=== PATIENT | male | born 1945 | race Caucasian/White ===

== ENCOUNTER 2023-06-21 09:19 | Emergency (ER) | payer MEDICARE ==
[2023-06-21 09:53] VITALS: RESP 18; TEMP 97.9
--- NOTE | 2023-06-21 10:03 | ED ---
Extremity Problem HPI - General Chief complaint: Extremity Problem,Nontraumatic Stated complaint: r leg injury/pain Time Seen by Provider: 06/21/23 09:27 Source: patient, RN notes reviewed Mode of arrival: wheelchair Limitations: physical limitation - History of Present Illness Initial comments: This is a 77-year-old male who presents to the emergency department for a right knee injury. Patient went to step up into his truck with his left leg, and ended up twisting his right knee somehow, and states that he felt something shift and pop. He has since had a lot of difficulty trying to bear weight and putting pressure on the right leg. Pain is only prominent when walking, and not as bothersome when sitting still. Not taking anything for management of his pain. Denies sustaining any other injuries. MD Complaint: extremity pain - Related Data Allergies Allergy/AdvReac Type Severity Reaction Status Date / Time No Known Allergies Allergy Verified 06/21/23 09:24 Review of Systems ROS Statement: Those systems with pertinent positive or pertinent negative responses have been documented in the HPI. ROS Other: All systems not noted in ROS Statement are negative. Past Medical History Past Medical History: No Reported History History of Any Multi-Drug Resistant Organisms: None Reported Past Surgical History: Tonsillectomy Past Psychological History: No Psychological Hx Reported Smoking Status: Never smoker Past Alcohol Use History: None Reported Past Drug Use History: None Reported General Exam Limitations: physical limitation General appearance: alert, in no apparent distress Head exam: Present: atraumatic, normocephalic, normal inspection Respiratory exam: Present: normal lung sounds bilaterally. Absent: respiratory distress, wheezes, rales, rhonchi, stridor Cardiovascular Exam: Present: regular rate, normal rhythm, normal heart sounds. Absent: systolic murmur, diastolic murmur, rubs, gallop, clicks Extremities exam: Present: other (Tenderness to palpation over the right knee with mild swelling. ROM limited by pain.) Neurological exam: Present: alert, oriented X3, CN II-XII intact Psychiatric exam: Present: normal affect, normal mood Skin exam: Present: warm, dry, intact, normal color. Absent: rash Course Vital Signs 06/21/23 06/21/23 09:20 11:47 Temperature 97.9 F Pulse Rate 65 63 Respiratory 18 18 Rate Blood Pressure 210/89 167/84 O2 Sat by Pulse 97 96 Oximetry Medical Decision Making - Medical Decision Making This is a 77 year old male who presents to the emergency department for right knee pain. Was pt. sent in by a medical professional or institution? @ -No Did you speak to anyone other than the patient for history? @ -No Did you review nursing and triage notes? @ -Yes, and I agree, it is accurate with regards to the patient's symptoms. Were old charts reviewed? @ -No Differential Diagnosis? @ -Differential Musculoskeletal: Muscular strain, contusion, ligament sprain, fracture, arthritis, septic arthritis, bursitis, cellulitis, muscle spasm, nerve compression, DVT, arterial occlusion, herpes zoster, electrolyte abnormality, tumor.... This is not meant to be in all inclusive list EKG interpreted by me (3pts min.)? @ -Not obtained X-rays interpreted by me (1pt min.)? @ -X-ray of the right knee obtained. My interpretation identifies no acute fractures. CT interpreted by me (1pt min.)? @ -Not obtained U/S interpreted by me (1pt. min.)? @ -Not obtained What testing was considered but not performed? (CT, X-rays, U/S, labs)? Why? @ -None What meds were considered but not given? Why? @ -None Did you discuss the management of the patient with other professionals? @ -No Did you reconcile home meds? @ -No Was smoking cessation discussed for >3mins.? @ -No Was critical care preformed (if so, how long)? @ -No Were there social determinants of health that impacted care today? How? (Homelessness, low income, unemployed, alcoholism, drug addiction, transportation, low edu. Level, literacy, decrease access to med. care, residential, rehab)? @ -No Was there de-escalation of care discussed even if they declined? (Discuss DNR or withdrawal of care, Hospice)? @ -No What co-morbidities impacted this encounter? (DM, HTN, Smoking, COPD, CAD, Cancer, CVA, Hep., AIDS, mental health diagnosis, sleep apnea, morbid obesity)? @ -None Was patient admitted / discharged? @ -Discharged. X-ray of the right knee obtained revealing soft tissue swelling. No acute fractures were identified. Discussed with the patient that that does not rule out the possibility of injuries to other structures such as ligaments, tendons, or his meniscus. Knee immobilizer applied in the emergency department which did improve symptoms and he was able to ambulate afterwards. Patient denies the need for any pain medication. Advised ibuprofen and Tylenol as needed for pain relief at home and applying ice for 15-20 minutes every 2-3 hours. Undiagnosed new problem with uncertain prognosis? @ -None Drug Therapy requiring intensive monitoring for toxicity (Heparin, Nitro, Insulin, Cardizem)? @ -None Were any procedures done? @ -None Diagnosis/symptom? @ -Right knee sprain Acute, or Chronic, or Acute on Chronic? @ -Acute Uncomplicated (without systemic symptoms) or Complicated (systemic symptoms)? @ -Uncomplicated Side effects of treatment? @ -None Exacerbation, Progression, or Severe Exacerbation] @ -Not applicable Poses a threat to life or bodily function? @ -This may limit his ability to ambulate for the mean time. Return precautions reviewed in depth, the patient is instructed to return to the emergency department with any new, worsening, or concerning symptoms. Patient verbalized understanding. This case was discussed in detail with the attending ED physician, Dr. Chacko. Presentation, findings, and treatment plan discussed in detail as well. - Radiology Data Radiology results: report reviewed, image reviewed Disposition Clinical Impression: Right knee sprain Disposition: HOME SELF-CARE Instructions (If sedation given, give patient instructions): Knee Sprain (ED), Knee Immobilizer (ED) Additional Instructions: Return to the emergency department with any new, worsening, or concerning symptoms. Alternate with ibuprofen and Tylenol as needed for pain relief. Apply ice for 15-20 minutes every 2-3 hours. Use the knee immobilizer as needed. If symptoms do not improve, you can follow up with orthopedics as listed below. Follow up with your primary care provider in 1-2 days. Is patient prescribed a controlled substance at d/c from ED?: No Referrals: Andre Burroughs DO [Primary Care Provider] - 1-2 days Time of Disposition: 11:31
--- NOTE | 2023-06-21 10:23 | XR ---
EXAMINATION TYPE: XR knee complete RT DATE OF EXAM: 06/21/2023 COMPARISON: NONE HISTORY: 77-year-old male pain after injury TECHNIQUE: 3 views FINDINGS: There is mild degenerative spurring in the medial compartment. No knee joint effusion. There may be m ild anterior soft tissue swelling. Extensor mechanism appears intact. No acute fracture, subluxation, dislocation. IMPRESSION: Mild anterior soft tissue swelling. Mild degenerative spurring medial compartment. No acute osseous a bnormality seen.
[2023-06-21 12:30] VITALS: BP 167/84; PULSE 63
== END 2023-06-21 11:49 | disposition home or self-care (01) ==
LOC: EC 09:19
DX: S83.91XA Sprain of unspecified site of right knee, initial encounter (principal); X50.1XXA Overexertion from prolonged static or awkward postures, initial encounter
CPT/HCPCS: 99283

== ENCOUNTER → 2023-10-28 | Outpatient (CLI) | payer MEDICARE ==
--- NOTE | 2023-10-28 09:25 | US ---
EXAMINATION TYPE: US arterial LE multi level DATE OF EXAM: 10/28/2023 8:52 AM CLINICAL INDICATION: Male, 77 years old with history of M79.606 PAIN IN LEG; History of: Smoker: Previous Hypertension: No Diabetic: No Hyperlipidemia: No TIA/CVA: No Previous Vascular Surgery: No GA: No Claudication: No Doppler Waveforms: Right: Multiphasic Left: Multiphasic Right Brachial Pressure: 187 Left Brachial Pressure: 172 Ankle-Brachial Indices: Right: 1.09 Left: 1.12 (Vessel hardening > 1.4; Normal 0.9 - 1.4, Moderate 0.7 - 0.9, Severe 0.5-0.7) IMPRESSION: Ankle-brachial indices within normal limits bilaterally.
== END | disposition home or self-care (01) ==
LOC: RADUSWWP 08:19
PROVIDERS: ATTEND Family Medicine
DX: M79.606 Pain in leg, unspecified (principal); Z87.891 Personal history of nicotine dependence
CPT/HCPCS: 93922

== ENCOUNTER → 2023-11-12 | Outpatient (CLI) | payer MEDICARE ==
--- NOTE | 2023-11-12 22:20 | MR ---
EXAMINATION TYPE: MR lumbar spine wo con DATE OF EXAM: 11/12/2023 5:38 PM CLINICAL INDICATION:Male, 77 years old with history of R20.2 PARESTHESIA OF SKIN;, Low back pain into both legs x3 months COMPARISON: None TECHNIQUE: Multi planar, multi sequence imaging was performed utilizing: T1-weighted, T2-weighted, a nd turbo inversion recovery imaging of the lumbar spine. IV Contrast: (None if empty) FINDINGS: Alignment: The lumbar vertebral bodies have preserved heights and scoliotic alignment apex left L3. Cord: The conus medullaris and the distal spinal cord appear unremarkable with regards to their signa l intensity and morphology. Bones/Discs: Mild degeneration changes throughout the spine with osteophyte formation and facet joint arthropathy. Intervertebral multilevel disc desiccation. And reactive bony edema of the adjoining en dplates of the right aspect of L2-L3. T12-L1: No evidence of significant spinal canal stenosis or neural foraminal stenosis. L1-L2: No evidence of significant spinal canal stenosis or neural foraminal stenosis. L2-L3: Disc bulge and facet joint arthropathy result in mild spinal canal and mild bilateral neural f oraminal stenosis. L3-L4: Disc bulge and facet joint arthropathy result in mild spinal canal and mild bilateral neural f oraminal stenosis. L4-L5: Disc bulge and facet joint arthropathy result in mild spinal canal and moderate to severe left and mild right neural foraminal stenosis. L5-S1: The disc has a rounded posterior morphology without significant spinal canal stenosis. Facet j oint arthropathy with mild bilateral neural foraminal stenosis. No significant spinal canal or neural foraminal stenosis in the remainder of the visualized levels. Other findings: None.a IMPRESSION: 1. No definitive evidence of disc herniation or significant spinal canal stenosis. 2. Multilevel disc degeneration with associated osteoarthritic changes. 3. Neural foraminal stenosis worse with moderate to severe left L4-L5
== END | disposition home or self-care (01) ==
LOC: RADMRIMAIN 15:20
PROVIDERS: ATTEND Family Medicine
DX: M51.36 Other intervertebral disc degeneration, lumbar region (principal); M99.73 Connective tissue and disc stenosis of intervertebral foramina of lumbar region; M47.816 Spondylosis without myelopathy or radiculopathy, lumbar region; R20.2 Paresthesia of skin
CPT/HCPCS: 72148

== ENCOUNTER → 2024-05-01 | Outpatient (CLI) | payer MEDICARE ==
--- NOTE | 2024-05-03 01:37 | PE ---
EXAMINATION TYPE: PET CT fusion skull to thigh DATE OF EXAM: 05/01/2024 CLINICAL INDICATION:Male, 78 years old with history of C61 PROSTATE CANCER; TECHNIQUE: Following the intravenous administration of 6.89 mCi of Ga-68 Illuccix (PSMA), whole bod y images are performed from the skull base to the midthigh. Images are reviewed on the computer in t he coronal, axial, and sagittal planes. Reconstructed rotating images are created on independent wor kstation and reviewed on the computer. A non-contrast CT is performed in conjunction with the PET s can. CT DLP: 1143.46 mGycm, Automated exposure control for dose reduction was used. COMPARISON: CT None, PET/CT None, MRI: None FINDINGS: Mediastinal SUV mean is 1.3. Hepatic parenchyma SUV mean is 4.2. SKULL BASE AND NECK: No suspicious radiotracer activity. CHEST, MEDIASTINUM, AND HILAR REGION: No suspicious radiotracer activity. ABDOMEN AND PELVIS: Focal radiotracer uptake identified within the posterior right aspect of the prostate gland apex with a maximum SUV of 14. MUSCULOSKELETAL STRUCTURES: No suspicious radiotracer activity. OTHER CT: Mild cardiomegaly. Small aortic valvular calcifications and coronary artery calcifications. Cholelithiasis. Mild atherosclerotic calcifications aorta and its branches. Small fat filled umbilic al hernia. Small fat filled bilateral inguinal hernias. Mild multilevel degenerative disc disease of the visualized spine. Mild paraseptal and centrilobular emphysematous changes. IMPRESSION: Focal uptake within the posterior right prostate apex likely representing reported prostate malignanc y. No other suspicious radiotracer uptake to suggest metastasis. [facility], , 05/03/2024 1:35 AM
== END | disposition home or self-care (01) ==
LOC: RADPETMAIN 12:29
PROVIDERS: ATTEND Urology
DX: C61 Malignant neoplasm of prostate (principal); N42.89 Other specified disorders of prostate
CPT/HCPCS: 78815; A9596

== ENCOUNTER 2024-07-02 10:54 | Day surgery (SDC) | payer MEDICARE ==
--- NOTE | 2024-06-28 19:30 | P.GSHP ---
History of Present Illness H&P Date: 06/28/24 Chief Complaint: Prostate Cancer Patient is a 78-year-old white male diagnosed with Julián 8 adenocarcinoma of the prostate in March 2024. His PSA level was 4.57. 7 of 12 biopsies were positive. A PSMA PET/CT scan showed no metastases. He has elected to be treated with IMRT and androgen deprivation therapy x 18 months. He received a 6-month Lupron injection on May 18 and now comes for SpaceOAR implant. - Genitourinary (Male) Genitourinary: Reports nocturia Past Medical History Past Medical History: No Reported History History of Any Multi-Drug Resistant Organisms: None Reported Past Surgical History: Tonsillectomy Past Psychological History: No Psychological Hx Reported Smoking Status: Never smoker Past Alcohol Use History: None Reported Past Drug Use History: None Reported Medications and Allergies Allergies Allergy/AdvReac Type Severity Reaction Status Date / Time No Known Allergies Allergy Verified 06/21/23 09:24 Surgical - Exam - General well developed, well nourished, no distress - Respiratory normal respiratory effort - Genitourinary normal penis with no external lesions, testicles non-tender - Rectum Rectum: normal sphincter tone, no masses, other (Right apical prostate nodule) - Psychiatric oriented to time, oriented to person, oriented to place, speech is normal, memory intact Assessment and Plan (1) Malignant neoplasm of prostate Status: Acute Code(s): C61 - MALIGNANT NEOPLASM OF PROSTATE SNOMED Code(s): 961016504 Plan: The SpaceOar implant has been reviewed in detail with the patient. He understands that the rationale for this is to create separation between the prostate and rectum, thus reducing the risk of radiation proctitis. The m aterial begins to breakdown 12-13 weeks following implant, and is reabsorbed by the body. Risks include anesthesia, bleeding, infection, and perineal discomfort. He understands that if the rectal wall is perforated the procedure will need to be aborted.
[2024-06-29 11:11] VITALS: BMI 36.3
[~2024-07-02 10:54] MED LIST: LIDOCAINE 1% (10MG/ML) FOR IV START INTRADERMA PRN; MIDAZOLAM 2 MG/2 ML VIAL IV PRN; fentaNYL (PF) 50 MCG/ML 2 ML AMP IVP PRN
[2024-07-02 11:58] VITALS: TEMP 97
[2024-07-02] MEDS: LACTATED RINGERS 1,000 ML IV ONE (11:58)
[2024-07-02] MEDS: LACTATED RINGERS 1,000 ML IV SCH (12:07)
[2024-07-02] MEDS: DEXAMETHASONE SOD PHOSPHATE 4 MG/ML 1 ML VIAL IV ONE (12:08)
[2024-07-02] MEDS: ONDANSETRON 4 MG/2 ML VIAL IVP ONE (12:08)
[2024-07-02] MEDS: LIDOCAINE 2% INJ 20 MG/ML SQ ONE ×4 (13:46→14:05)
[2024-07-02] MEDS ORDERED: fentaNYL (PF) 50 MCG/ML 2 ML AMP ONE (13:53)
[2024-07-02] MEDS ORDERED: LIDOCAINE 1% INJ 10MG/ML (20 ML MDV) ONE (13:53)
[2024-07-02] MEDS ORDERED: PROPOFOL 10 MG/ML 20 ML VIAL IV ONE (13:53)
[2024-07-02] MEDS ORDERED: MIDAZOLAM 2 MG/2 ML VIAL ONE (13:53)
[2024-07-02] MEDS: ceFAZolin 3 GM in SODIUM CHLORIDE 0.9% 100 ML IVPB PRN (13:54)
--- NOTE | 2024-07-02 14:16 | P.OP ---
Date of Procedure: 07/02/24 Preoperative Diagnosis: Adenocarcinoma of the prostate Postoperative Diagnosis: Same Procedure(s) Performed: SpaceOAR implant Anesthesia: MAC Surgeon: Alan Newsome Estimated Blood Loss (ml): 5 IV fluids (ml): 500 Pathology: none sent Condition: stable Disposition: PACU Indications for Procedure: Patient is a 78-year-old white male diagnosed with Julián 8 adenocarcinoma of the prostate in March 2024. His PSA level was 4.57. 7 of 12 biopsies were positive. A PSMA PET/CT scan showed no metastases. He has elected to be treated with IMRT and androgen deprivation therapy x 18 months. He received a 6-month Lupron injection on May 18 and now comes for SpaceOAR implant. Operative Findings: Approximately 1 cm separation created between prostate and rectum. Description of Procedure: The patient was taken to the operating room and placed in the dorsolithotomy position, with his legs supported in Keiht stirrups. The external genitalia was prepped and draped sterilely. [employer] transrectal ultrasound probe was placed intrarectally. The prostate was imaged. The probe was then placed within the stabilizing stand. A spinal needle was advanced under ultrasonic guidance to the level of the urogenital diaphragm, and lidocaine was used to infiltrate the tissues as the needle was withdrawn. Next, the SpaceOAR needle was passed through the midline of the perineum, 1-2 cm anterior to the anal opening. The needle was slowly advanced under ultrasonic guidance until the needle tip was located within the fat plane between the prostate and rectum, at the level of the mid prostate gland. The needle was confirmed to be midline on the axial imaging. A small amount of normal saline was injected for hydrodissection. Next, the SpaceOAR components were mixed and loaded into the Y connector per protocol. The Y connector was then connected to the needle, and the components were injected slowly over a course of approximately 12 seconds. A total of 10 ml was injected. Significant distance was created between the prostate and rectum, as desired. It should be noted that at no point was there any concern of rectal perforation. The needle was withdrawn, as well as the transrectal ultrasound probe, and the procedure was terminated. The patient tolerated the procedure well and was taken to the recovery room in stable condition.
[2024-07-02 14:37] VITALS: BP 159/90; PULSE 67; RESP 16
== END 2024-07-02 14:54 | disposition home or self-care (01) ==
LOC: OR 10:54
PROVIDERS: ATTEND Urology
DX: C61 Malignant neoplasm of prostate (principal); Z90.89 Acquired absence of other organs
CPT/HCPCS: 55874; C1889; J2250; J1100; J0690; J2405; J2003 ×2; J3010; J2704

== ENCOUNTER → 2024-09-09 | Outpatient (CLI) | payer MEDICARE ==
--- NOTE | 2024-09-09 08:08 | US ---
EXAMINATION TYPE: US carotid duplex BILAT DATE OF EXAM: 09/09/2024 COMPARISON: NONE CLINICAL INDICATION: Male, 78 years old with history of R09.89 oth sympt/sign of circ and resp systm; Auditory bruit Additional History: .... TECHNIQUE: Grayscale, color Doppler and spectral Doppler evaluation of the bilateral carotid systems and vertebral arteries. Indirect Doppler criteria was utilized. FINDINGS: EXAM MEASUREMENTS: RIGHT: Peak Systolic Velocity (PSV) cm/sec ----- Right CCA: 39 ----- Right ICA: 63 ----- Right ECA: 91 ICA/CCA ratio: 1.6 RIGHT: End Diastole cm/sec ----- Right CCA: 8 ----- Right ICA: 20 ----- Right ECA: 11 LEFT: Peak Systolic Velocity (PSV) cm/sec ----- Left CCA: 58 ----- Left ICA: 79 ----- Left ECA: 90 ICA/CCA ratio: 1.4 LEFT: End Diastole cm/sec ----- Left CCA: 8 ----- Left ICA: 18 ----- Left ECA: 10 VERTEBRALS (direction of flow): Right Vertebral: Antegrade Left Vertebral: Antegrade Rhythm: Normal [employer] NOTES: No plaque, intimal thickening, or elevated velocities seen Color Doppler imaging shows patency with blood flow throughout the carotid artery. Spectral waveforms are within normal limits. IMPRESSION: Right: No hemodynamically significant stenosis. Left: No hemodynamically significant stenosis. Criteria for Assigning % of Stenosis / Diameter reduction (Estimation based on the indirect measurements of the internal carotid artery velocities (ICA PSV). 1. Normal (no stenosis)=ICA PSV < 180 cm/s: ratio < 2.0: ICA EDV<40 cm/s. 2. Less than 50% stenosis=ICA PSV < 180 cm/s: ratio < 2.0: ICA EDV<40 cm/s. 3. 50 to 69% stenosis=ICA PSV of 180 to 230 cm/s: ration 2.0 ? 4.0: ICA EDV 40-100 cm/s. PSV 125-180 cm/sec and ICA/CCA PSV Ratio ? 2.0 is also consistent with 50-69% stenosis 4. Greater than 70% stenosis to near occlusion= ICA PSV > 230 cm/s: ratio > 4.0: ICA EDV > 100 cm/s. 5. Near occlusion= ICA PSV velocities may be low or undetectable: variable ratio and ICA EDV. 6. Total occlusion=unable to detect flow. [facility], , 09/09/2024 8:06 AM
== END | disposition home or self-care (01) ==
LOC: RADUSWWP 07:01
PROVIDERS: ATTEND Family Medicine
DX: R09.89 Other specified symptoms and signs involving the circulatory and respiratory systems (principal)
CPT/HCPCS: 93880

== ENCOUNTER → 2024-10-27 | Outpatient (CLI) | payer MEDICARE ==
[2024-10-27 15:34] LABS: Prostate Specific Antigen 0.13 ng/mL (0.000-6.500)
[2024-10-27 15:52] LABS: Testosterone <10.00 ng/dL (86.98-780.10)
== END | disposition home or self-care (01) ==
LOC: LABWHC1 11:16
PROVIDERS: ATTEND Radiology Radiation Oncology
DX: C61 Malignant neoplasm of prostate (principal)
CPT/HCPCS: 36415; 84153; 84403

== ENCOUNTER 2024-11-28 13:10 | Inpatient (IN) | payer MEDICARE ==
--- NOTE | 2024-11-28 13:28 | ED ---
General Adult HPI - General Chief complaint: Weakness Stated complaint: Right-sided weakness Time Seen by Provider: 11/28/24 13:16 Source: patient, RN notes reviewed Mode of arrival: ambulatory Limitations: no limitations - History of Present Illness Initial comments: patient is a 78-year-old male present to the emergency department with concerns for right-sided weakness. Onset was around 1230. Patient was making coffee. Patient suddenly felt numbness on his right side with weakness. Patient did fall down and had garbled speech that lasted 3 to 4 minutes. Patient did not completely lose consciousness. No history of similar symptoms previously. Symptoms have improved. Speech is near normal at this time. - Related Data Home Medications Medication Instructions Recorded Confirmed No Known Home Medications 11/28/24 11/28/24 Allergies Allergy/AdvReac Type Severity Reaction Status Date / Time No Known Allergies Allergy Verified 11/28/24 13:57 Review of Systems ROS Statement: Those systems with pertinent positive or pertinent negative responses have been documented in the HPI. ROS Other: All systems not noted in ROS Statement are negative. Constitutional: Denies: fever Eyes: Denies: eye pain ENT: Denies: ear pain Respiratory: Denies: cough Cardiovascular: Denies: chest pain Endocrine: Denies: fatigue Gastrointestinal: Denies: abdominal pain Neurological: Reports: weakness, confusion. Denies: headache Past Medical History Past Medical History: Cancer Additional Past Medical History / Comment(s): Prostate CA History of Any Multi-Drug Resistant Organisms: None Reported Past Surgical History: Tonsillectomy Past Psychological History: No Psychological Hx Reported Smoking Status: Never smoker Past Alcohol Use History: None Reported Past Drug Use History: None Reported General Exam Limitations: no limitations General appearance: alert, in no apparent distress Head exam: Present: normocephalic Eye exam: Present: normal appearance, PERRL, EOMI. Absent: nystagmus ENT exam: Present: normal oropharynx Neck exam: Present: normal inspection Respiratory exam: Present: normal lung sounds bilaterally Cardiovascular Exam: Present: regular rate, normal rhythm GI/Abdominal exam: Present: soft. Absent: tenderness Extremities exam: Present: normal inspection Neurological exam: Present: alert, oriented X3, CN II-XII intact. Absent: motor sensory deficit Expanded Neurological exam: Present: protecting the airway Patient oriented to: Present: person, place, time Speech: Present: fluid speech Cranial nerves: EOM's Intact: Normal, Facial Sensation: Normal Sensory exam: Upper Extremity Light Touch: Normal, Lower Extremity Light Touch: Normal Motor strength exam: RUE: 5, LUE: 5, RLE: 5, LLE: 5 Eye Response: (4) open spontaneously Motor Response: (6) obeys commands Verbal Response: (5) oriented Psychiatric exam: Present: normal affect, normal mood Skin exam: Present: normal color Course Vital Signs 11/28/24 11/28/24 11/28/24 13:13 13:24 13:39 Temperature 97.9 F Pulse Rate 68 54 L 62 Respiratory 18 18 18 Rate Blood Pressure 193/92 176/88 176/93 O2 Sat by Pulse 97 93 L 97 Oximetry 11/28/24 13:54 Temperature Pulse Rate 61 Respiratory 18 Rate Blood Pressure 170/89 O2 Sat by Pulse 97 Oximetry EKG Findings - EKG Results: EKG: interpreted by FRANCISCAD, sinus rhythm, normal axis, normal QRS, normal ST/T Medical Decision Making - Medical Decision Making Was pt. sent in by a medical professional or institution (, PA, WRAPPER OFF, urgent care, hospital, or detention...) When possible be specific @ -No Did you speak to anyone other than the patient for history (EMS, parent, family, police, friend...)? What history was obtained from this source @ -Family is present who helps provide symptoms including onset time and speech problems Did you review nursing and triage notes (agree or disagree)? Why? @ -I reviewed and agree with nursing and triage notes Were old charts reviewed (outside hosp., previous admission, EMS record, old EKG, old radiological studies, urgent care reports/EKG's, detention records)? Report findings @ -No old charts were reviewed Differential Diagnosis (chest pain, altered mental status, abdominal pain women, abdominal pain men, vaginal bleeding, weakness, fever, dyspnea, syncope, headache, dizziness, GI bleed, back pain, seizure, CVA, palpatations, mental health, musculoskeletal)? @ -Differential Weakness: Hypoglycemia, shock, sepsis, hyponatremia, anemia, infection, AK, ETOH, adverse medicine reaction, overdose, stroke, this is not meant to be an all-inclusive list. EKG interpreted by me (3pts min.). @ -As above X-rays interpreted by me (1pt min.). @ -Chest x-ray without acute abnormality chest x-ray without acute abnormality CT interpreted by me (1pt min.). @ -CT brain without acute abnormality U/S interpreted by me (1pt. min.). @ -None done What testing was considered but not performed or refused? (CT, X-rays, U/S, labs)? Why? @ -None What meds were considered but not given or refused? Why? @ -Consider tenecteplase, see below Did you discuss the management of the patient with other professionals (professionals i.e. , PA, WRAPPER OFF, lab, RT, psych nurse, social media executive, pipe blanks cut off saw operator, teacher, officer lieutenant, nurse outreach case manager)? Give summary @ -Case was discussed with Dr. De Leon who will admit covering Dr. Li. Case was earlier discussed with Dr. Barth who agrees patient is not a candidate for tenecteplase. Symptoms are near resolved. It is felt that the risk would outweigh benefits. Was smoking cessation discussed for >3mins.? @ -No Was critical care preformed (if so, how long)? @ -31 minutes critical care time, activity stroke patient Were there social determinants of health that impacted care today? How? (Home lessness, low income, unemployed, alcoholism, drug addiction, transportation, low edu. Level, literacy, decrease access to med. care, assisted, rehab)? @ -No Was there de-escalation of care discussed even if they declined (Discuss DNR or withdrawal of care, Hospice)? DNR status @ -No What co-morbidities impacted this encounter? (DM, HTN, Smoking, COPD, CAD, Cancer, CVA, ARF, Chemo, Hep., AIDS, mental health diagnosis, sleep apnea, morbid obesity)? @ -None Was patient admitted / discharged? Hospital course, mention meds given and route, prescriptions, significant lab abnormalities, going to OR and other pertinent info. @ -Patient presents with right-sided deficits and garbled speech, near resolved on arrival. Patient not considered candidate for tenecteplase after discussion with neuro interventional. Patient reevaluated and updated. CTA was ordered and is still pending. Patient will be admitted with neuro consult. Admission orders written. Undiagnosed new problem with uncertain prognosis? @ -No Drug Therapy requiring intensive monitoring for toxicity (Heparin, Nitro, Insulin, Cardizem)? @ -No Were any procedures done? @ -No Diagnosis/symptom? @ -TIA Acute, or Chronic, or Acute on Chronic? @ -Acute Uncomplicated (without systemic symptoms) or Complicated (systemic symptoms)? @ -Default Side effects of treatment? @ -No Exacerbation, Progression, or Severe Exacerbation? @ -No Poses a threat to life or bodily function? How? (Chest pain, USA, AK, pneumonia, PE, COPD, DKA, ARF, appy, cholecystitis, CVA, Diverticulitis, Homicidal, Suicidal, threat to staff... and all critical care pts) @ -Threat to neurological function - Lab Data Result diagrams: 11/28/24 13:29 11/28/24 13:29 Lab Results 11/28/24 11/28/24 11/28/24 Range/Units 13:29 13:29 13:29 WBC 4.49 L (4.50-10.00) 10*3/uL RBC 4.24 L (4.40-5.60) 10*6/uL Hgb 12.8 L (13.0-17.0) g/dL Hct 37.5 L (39.6-50.0) % MCV 88.4 (80.0-97.0) fL MCH 30.2 (27.0-32.0) pg MCHC 34.1 (32.0-37.0) g/dL Plt Count 166 (140-440) 10*3/uL MPV 9.5 (9.5-12.2) fL Immature Gran % (Auto) 0.2 % Neutrophils % 63.0 % Lymphocytes % 21.8 % Monocytes % 9.4 % Eosinophils % 4.9 % Basophils % 0.7 % Immature Gran # 0.01 (0.00-0.04) 10*3/uL Neutrophils # 2.83 (1.80-7.70) 10*3/uL Lymphocytes # 0.98 (0.90-5.00) 10*3/uL Monocytes # 0.42 (0.20-1.00) 10*3/uL Eosinophils # 0.22 (0.04-0.35) 10*3/uL Basophils # 0.03 (0.00-0.10) 10*3/uL PT 10.7 (10.0-12.5) sec INR 1.0 (<1.2) APTT 27.6 (22.0-30.0) sec Sodium 140 (137-145) mmol/L Potassium 4.2 (3.5-5.1) mmol/L Chloride 102 (98-107) mmol/L Carbon Dioxide 29 (22-30) mmol/L Anion Gap 9 mmol/L BUN 10 (9-20) mg/dL Creatinine 0.91 (0.66-1.25) mg/dL Est GFR (CKD-EPI)AfAm >90 (>60 ml/min/1.73 sqM) Est GFR (CKD-EPI)NonAf 82 (>60 ml/min/1.73 sqM) Glucose 98 (74-99) mg/dL POC Glucose (mg/dL) (70-110) mg/dL POC Glu Naval Engineer ID Calcium 9.0 (8.4-10.2) mg/dL Total Bilirubin 0.5 (0.2-1.3) mg/dL AST 23 (17-59) U/L ALT 14 (4-49) U/L Alkaline Phosphatase 101 (38-126) U/L Creatine Kinase 132 (55-170) U/L Total Protein 6.6 (6.3-8.2) g/dL Albumin 4.0 (3.5-5.0) g/dL / Range/Units 13:29 WBC (4.50-10.00) 10*3/uL RBC (4.40-5.60) 10*6/uL Hgb (13.0-17.0) g/dL Hct (39.6-50.0) % MCV (80.0-97.0) fL MCH (27.0-32.0) pg MCHC (32.0-37.0) g/dL Plt Count (140-440) 10*3/uL MPV (9.5-12.2) fL Immature Gran % (Auto) % Neutrophils % % Lymphocytes % % Monocytes % % Eosinophils % % Basophils % % Immature Gran # (0.00-0.04) 10*3/uL Neutrophils # (1.80-7.70) 10*3/uL Lymphocytes # (0.90-5.00) 10*3/uL Monocytes # (0.20-1.00) 10*3/uL Eosinophils # (0.04-0.35) 10*3/uL Basophils # (0.00-0.10) 10*3/uL PT (10.0-12.5) sec INR (<1.2) APTT (22.0-30.0) sec Sodium (137-145) mmol/L Potassium (3.5-5.1) mmol/L Chloride (98-107) mmol/L Carbon Dioxide (22-30) mmol/L Anion Gap mmol/L BUN (9-20) mg/dL Creatinine (0.66-1.25) mg/dL Est GFR (CKD-EPI)AfAm (>60 ml/min/1.73 sqM) Est GFR (CKD-EPI)NonAf (>60 ml/min/1.73 sqM) Glucose (74-99) mg/dL POC Glucose (mg/dL) 94 (70-110) mg/dL POC Glu Naval Engineer ID [place] Calcium (8.4-10.2) mg/dL Total Bilirubin (0.2-1.3) mg/dL AST (17-59) U/L ALT (4-49) U/L Alkaline Phosphatase (38-126) U/L Creatine Kinase (55-170) U/L Total Protein (6.3-8.2) g/dL Albumin (3.5-5.0) g/dL Disposition Clinical Impression: TIA (transient ischemic attack) Disposition: ADMITTED IP TO THIS HOSP Is patient prescribed a controlled substance at d/c from ED?: No Referrals: Andre Burroughs DO [Primary Care Provider] - 1-2 days Time of Disposition: 14:48
[2024-11-28 13:29] LABS: Glucose,Whole Blood 94 mg/dL (70-110)
[2024-11-28 13:40] LABS: Basophils # (A) 0.03 10*3/uL (0.00-0.10); Basophils % (A) 0.7 %; Eosinophils # (A) 0.22 10*3/uL (0.04-0.35); Eosinophils % (A) 4.9 %; HCT 37.5 % (39.6-50.0); HGB 12.8 g/dL (13.0-17.0); Lymphocytes # (A) 0.98 10*3/uL (0.90-5.00); Lymphocytes % (A) 21.8 %; MCH 30.2 pg (27.0-32.0); MCHC 34.1 g/dL (32.0-37.0); MCV 88.4 fL (80.0-97.0); Monocytes # (A) 0.42 10*3/uL (0.20-1.00); Monocytes % (A) 9.4 %; Neutrophils # (A) 2.83 10*3/uL (1.80-7.70); Neutrophils % (A) 63.0 %; Platelet Count 166 10*3/uL (140-440); RBC 4.24 10*6/uL (4.40-5.60); RDW 12.3 % (11.5-14.5); WBC 4.49 10*3/uL (4.50-10.00)
[2024-11-28 13:54] LABS: ALT 14 U/L (4-49); AST 23 U/L (17-59); African American GFR (CKD) >90 (>60 ml/min/1.73 sqM); Albumin 4.0 g/dL (3.5-5.0); Alkaline Phosphatase 101 U/L (38-126); Anion Gap 9 mmol/L; Blood Urea Nitrogen 10 mg/dL (9-20); Calcium 9.0 mg/dL (8.4-10.2); Carbon Dioxide 29 mmol/L (22-30); Chloride 102 mmol/L (98-107); Creatine Kinase 132 U/L (55-170); Glucose 98 mg/dL (74-99); Non-African American GFR(CKD) 82 (>60 ml/min/1.73 sqM); Potassium 4.2 mmol/L (3.5-5.1); Sodium 140 mmol/L (137-145); Total Protein 6.6 g/dL (6.3-8.2)
[2024-11-28 13:57] LABS: INR 1.0 (<1.2); Partial Thromboplastin Time 27.6 sec (22.0-30.0); Prothrombin Time 10.7 sec (10.0-12.5)
--- NOTE | 2024-11-28 13:57 | XR ---
EXAMINATION TYPE: XR chest 2V DATE OF EXAM: 11/28/2024 1:54 PM COMPARISON: None. CLINICAL INDICATION: Male, 78 years old with history of altered mental status: Shortness of breath TECHNIQUE: XR chest 2V views of the chest are obtained. FINDINGS: Scattered senescent parenchymal changes noted. Hyperinflation compatible with COPD. No evidence for infiltrate. No evidence for atelectasis. Heart size is stable. Mediastinal structures are stable and grossly unremarkable. No evidence for hilar prominence. Degenerative changes dorsal spine. IMPRESSION: 1. No evidence for acute pulmonary disease. [facility], , 11/28/2024 1:55 PM
--- NOTE | 2024-11-28 13:57 | CT ---
EXAMINATION TYPE: CT brain wo con DATE OF EXAM: 11/28/2024 COMPARISON: None CLINICAL INDICATION: Male, 78 years old with history of Neuro deficit, acute, stroke suspected; [facility], TECHNIQUE: CT scan of the head is performed without contrast. CT DLP: mGycm CT CTDI: mGy Automated exposure control for dose reduction was used. FINDINGS: There is no acute intracranial hemorrhage or midline shift identified. There is diffuse v entricular and sulcal prominence consistent with diffuse age-related cerebral atrophy. There is low- attenuation in the periventricular white matter consistent with chronic small vessel ischemic change. The globes are intact and the visualized sinuses are clear. IMPRESSION: No acute intracranial hemorrhage or midline shift. There is diffuse age-related cerebra l atrophy and chronic small vessel ischemic change noted. [facility], , 11/28/2024 1:54 PM
--- NOTE | 2024-11-28 14:56 | CT ---
EXAMINATION TYPE: CT angio head neck DATE OF EXAM: 11/28/2024 2:31 PM COMPARISON: None. CLINICAL INDICATION: Male, 78 years old with history of Neuro deficit, acute, stroke suspected; [facility], CODE STROKE TECHNIQUE: Axially acquired helical CT angiogram of the head and neck was obtained with contrast. Axi al images are supplemented with 3D reconstructions and MIP images which were post-processed at an in dependent workstation. NASCET criteria used. Contrast used:65 ML mL of Isovue 370 without and with IV Contrast, Oral contrast used: None. CT DLP: 938.2 mGycm, Automated exposure control for dose reduction was used. FINDINGS: CTA HEAD: No evidence of acute intracranial hemorrhage, mass effect, or midline shift. The ventricles, sulci, a nd cisterns are unremarkable. Vertebral arteries: The vertebral arteries are patent. Vertebral artery dominance: Codominant Basilar artery: Short segment moderate stenosis of the basilar artery (132/479). Internal Carotid arteries: The cervical, petrous, cavernous and supraclinoid segments demonstrate anahi cified atherosclerotic disease without flow-limiting stenosis. BRENNA: Patent with no evidence of aneurysm. ACOM: Present without evidence of aneurysm. MCA: Short segment focal region of moderate to severe stenosis involving the left M1 segment of the M CA (coronal image 40/96) with reconstitution more distally. ADJUNCT PROFESSOR OF ENGLISH: Patent with no evidence of aneurysm. PCOM: Hypoplastic bilaterally. Dural sinuses: Patent. CTA NECK: Right Carotid System: The common carotid artery and external carotid artery are patent. The carotid bifurcation demonstrate s no evidence of hemodynamically significant stenosis. The remaining portions of the internal carotid artery demonstrate normal size without significant narrowing. Left Carotid System: The common carotid artery and external carotid artery are patent. The carotid bifurcation demonstrate s no evidence of hemodynamically significant stenosis. The remaining portions of the internal carotid artery demonstrate normal size without significant narrowing. Vertebral arteries are patent without evidence hemodynamically significant stenosis. There is a three-vessel aortic arch. The origins of the great vessels are patent. No evidence of hemo dynamically significant stenosis. Emphysema involving the partially visualized upper lungs. Upper thorax: IMPRESSION: 1. 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 Consider further evaluation with brain MRI if there is continued clinical concern for acute ischemi a. 2. 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 3. No evidence of dissection of the cervical internal carotid arteries or vertebral arteries. 4. No any evidence of significant stenosis at the carotid bifurcations. [facility], , 11/28/2024 2:53 PM
[2024-11-28] MEDS: SODIUM CHLORIDE 0.9% 1,000 ML IV SCH (15:03)
[2024-11-28] MEDS: ASPIRIN 325 MG TAB PO STA (15:04)
[2024-11-28] MEDS: TICAGRELOR 90 MG TAB PO SCH (17:46)
[2024-11-28] MEDS: ATORVASTATIN 20 MG TAB PO SCH (17:46)
[2024-11-28] MEDS: HEPARIN SODIUM,PORCINE 5,000 UNIT/ML 1 ML VIAL SQ SCH (21:23)
[2024-11-28 21:45] LABS: Bilirubin,Urine Negative (Negative); Blood,Urine Negative (Negative); Color,Urine Colorless; Glucose,Urine (UA) Negative (Negative); Ketones,Urine Negative (Negative); Leukocyte Esterase,Urine Negative (Negative); Nitrite,Urine Negative (Negative); PH, Urine 6.5 (5.0-8.0); Protein,Urine Negative (Negative); Specific Gravity,Urine 1.014 (1.001-1.035); Urobilinogen,Urine <2.0 mg/dL (<2.0)
--- NOTE | 2024-11-29 01:32 | HP ---
HISTORY AND PHYSICAL CHIEF COMPLAINT: Right-sided weakness and dysphagia. HISTORY OF PRESENT ILLNESS: This is a 78-year-old gentleman with a past medical history of prostate cancer, was complaining of right-sided weakness and the patient also has some incoordination. The patient also has some numbness and garbled speech. The initial workup was negative. The patient was admitted for evaluation. There is no history of fever, rigors, or chills. PAST MEDICAL HISTORY: Prostate cancer. Rest of the chart is also reviewed. HOME MEDICATIONS: None. ALLERGIES: None. FAMILY HISTORY: No history of heart disease or strokes in the family. SOCIAL HISTORY: No history of smoking or alcohol. REVIEW OF SYSTEMS: Fourteen-point review of systems negative except as mentioned earlier. PHYSICAL EXAM: VITAL SIGNS: Pulse 61, blood pressure 171/89, respirations 18. HEENT: Conjunctivae normal. NECK: No jugular venous distention. CARDIOVASCULAR: S1 and S2. ABDOMEN: Soft . LEGS: No edema. NERVOUS SYSTEM: Minimal right-sided weakness and right incoordination also present. LABORATORY DATA: WBC 4.2, hemoglobin 12.8. Rest of the labs reviewed. ASSESSMENT: 1. Weakness and numbness and incoordination on the right side, rule out left hemispheric stroke. 2. 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 3. Possible transient ischemic attack. 4. Mild leukopenia. 5. Mild anemia. 6. History of prostate cancer. 7. History of tonsillectomy. 8. Hypertension. RECOMMENDATION: This is a 79-year-old gentleman, who presents with multiple complex medical issues. We will monitor the patient closely. Initiate antiplatelet agents. Neurology consultation, complete neurovascular workup. The CT angiography of the neck showed severe stenosis of the left M1 segment of the MCA with reconstitution. We will continue to monitor. Guarded prognosis. Further recommendations to follow. See orders for details. MMODL / IJN: [id number] /
[2024-11-29] MEDS: ASPIRIN 81 MG PO SCH (09:04)
[2024-11-29 09:47] LABS: Basophils # (A) 0.03 X 10*3/uL (0.00-0.10); Basophils % (A) 0.7 %; Eosinophils # (A) 0.23 X 10*3/uL (0.04-0.35); Eosinophils % (A) 5.1 %; HCT 37.1 % (39.6-50.0); HGB 12.3 g/dL (13.0-17.0); Immature Grans, Automated 0.20 %; Lymphocytes # (A) 0.65 X 10*3/uL (0.90-5.00); Lymphocytes % (A) 14.3 %; MCH 29.6 pg (27.0-32.0); MCHC 33.2 g/dL (32.0-37.0); MCV 89.2 FL (80.0-97.0); Monocytes # (A) 0.42 X 10*3/uL (0.20-1.00); Monocytes % (A) 9.3 %; NRBC Per 100 WBC 0 X 10*3/uL (0.00-0.01); Neutrophils # (A) 3.19 X 10*3/uL (1.80-7.70); Neutrophils % (A) 70.4 %; Platelet Count 156 X 10*3/uL (140-440); RBC 4.16 X 10*6/uL (4.40-5.60); RDW 12.6 % (11.5-14.5); WBC 4.53 X 10*3/uL (4.50-10.00)
[2024-11-29 09:58] LABS: Anion Gap 8.70 mmol/L (4.00-12.00); BUN/Creat Ratio 8.50 Ratio (12.00-20.00); Blood Urea Nitrogen 8.5 mg/dL (9.0-27.0); Calcium 9.0 mg/dL (8.7-10.3); Carbon Dioxide 25.3 mmol/L (21.6-31.8); Chloride 106 mmol/L (96-109); Cholesterol 173.00 mg/dL (0.00-200.00); Glucose 114 mg/dL (70-110); HDL Cholesterol 43.20 mg/dL (40.00-60.00); LDL Cholesterol,Calculated 105.8 mg/dL (0.0-131.0); Potassium 3.9 mmol/L (3.5-5.5); Sodium 140 mmol/L (135-145); Triglycerides 120.00 mg/dL (0.00-149.00); VLDL Calculation 24.00 mg/dL (5.00-40.00)
--- NOTE | 2024-11-29 11:24 | P.CNNES ---
History of Present Illness Consult date: 11/29/24 Requesting physician: Mihai Brink Reason for Consult: tia History of Present Illness: This is a 78-year-old gentleman who presents emergency department right-sided weakness and numbness. Patient is accompanied with his . Seems that yesterday at around 12:15 PM patient was drinking coffee and he felt his right arm was asleep according to the . Then he fell out of his seat and upon trying to get up he noticed that he has right sided numbness as well as weakness. Lose consciousness from the fall patient felt his numbness is improving but continues to have weakness over the right side. He had some garbled speech that lasted for 3 to 4 minutes yesterday. He feels symptoms is slightly improving but has not resolved since his initial presentation. He denies any history of stroke. Denies being on antiplatelets on a daily basis. Denies any A-fib or flutter in the past. Denies tobacco use or significant alcohol use or any illicit drug use. Has history of prostate cancer and he had radiation and is currently on hormonal therapy Some of the workup during this hospital visit consisted of: Lipid panel: Triglyceride is 120, cholesterol is 173, LDL is 105 and HDL is 43 I reviewed the rest of the lab workup CT of the head is reported as no acute intracranial hemorrhage or midline shift. There is diffuse age-related cerebral atrophy and chronic small vessel ischemic change noted. I personally reviewed the CT of the head and I agree there is no acute or subacute stroke. CT angiography of the head and neck is reported as short segment severe stenosis of the left M1 MCA with reconstitution more distally. Consider further evaluation with MRI of the brain if there are continued clinical concern for acute ischemia. Short segment moderate stenosis of basilar artery with reconstitution more distally. No evidence of dissection of the cervical internal carotid artery or vertebral artery. No any evidence of significant stenosis at the carotid bifurcation. A code stroke was activated by the ED team and seems per the ED physician the case was discussed with Dr. Kendrick (stroke attending) who recommended the patient is not a candidate for tenecteplase since his symptoms are nearly resolv ed and I felt the risk outweigh the benefit as well as no intervention and recommended adding Brilinta and obtaining MRI as an inpatient. And if there is a concern for stroke on the MRI should follow-up with him as an outpatient. Review of Systems As per HPI Past Medical History Past Medical History: Cancer Additional Past Medical History / Comment(s): Prostate CA History of Any Multi-Drug Resistant Organisms: None Reported Past Surgical History: Tonsillectomy Past Psychological History: No Psychological Hx Reported Smoking Status: Never smoker Past Alcohol Use History: None Reported Past Drug Use History: None Reported Medications and Allergies Home Medications Medication Instructions Recorded Confirmed Type No Known Home Medications 11/28/24 11/28/24 History Allergies Allergy/AdvReac Type Severity Reaction Status Date / Time No Known Allergies Allergy Verified 11/28/24 13:57 Physical Examination - Vital Signs Vital Signs: Vital Signs Temp Pulse Pulse Resp BP BP Pulse Ox 11/29/24 06:55 98.5 F 58 L 16 161/77 97 11/29/24 02:33 97.9 F 60 16 171/88 96 11/29/24 01:41 15 11/28/24 22:33 97.5 F L 58 L 16 179/82 99 11/28/24 22:17 98.1 F 61 15 145/78 97 11/28/24 21:32 61 17 163/70 98 11/28/24 19:45 65 18 143/65 97 11/28/24 17:00 80 18 170/89 98 11/28/24 16:49 65 18 169/88 99 11/28/24 16:01 78 20 171/86 97 11/28/24 15:06 63 20 179/87 96 11/28/24 13:54 61 18 170/89 97 11/28/24 13:39 62 18 176/93 97 11/28/24 13:24 54 L 18 176/88 93 L 11/28/24 13:13 97.9 F 68 18 193/92 97 Intake and Output 11/28/24 11/29/24 11/29/24 22:59 06:59 14:59 Intake Total 360 Balance 360 Intake: Oral 360 Other: Voiding Method Urinal # Voids 0 2 3 # Bowel Movements 1 Weight 132.449 kg GENERAL: Sitting on chair and is not in acute distress. NEUROLOGICAL: Higher mental function: The patient is awake, alert, oriented to self, place and time. Patient is following commands. No aphasia and no neglect. Cranial nerves: The pupils are round, equal and reactive to light and accommodation. Visual jimenez are full to confrontation throughout. Extraocular movement is intact no nystagmus is noted. Facial sensation is normal to touch throughout. The facial strength is mild right lower. Hearing is normal bilaterally to hand rub. Tongue is midline and moved [id number] without any difficulty. No dysarthria is noted. Shoulder shrug is normal bilaterally. Motor: The strength is has dexterity with right hand. Otherwise 5 over 5 throughout. Normal tone and bulk. Cerebellum: Has ataxia of the right finger to nose. Otherwise normal on the left finger to nose and heel to sandoval bilaterally. Sensation: Sensation is normal to touch throughout. Results - Laboratory Findings CBC and BMP: 11/29/24 05:33 11/29/24 05:33 Abnormal Lab Findings: Abnormal Labs 11/28/24 11/29/24 11/29/24 13:29 05:33 05:33 WBC 4.49 L RBC 4.24 L 4.16 L Hgb 12.8 L 12.3 L Hct 37.5 L 37.1 L Lymphocytes # 0.65 L BUN 8.5 L BUN/Creatinine Ratio 8.50 L Glucose 114 H Assessment and Plan Assessment: Patient is a 78-year-old gentleman who yesterday had sudden onset right-sided weakness and numbness around 12:15pm called the patient. CT of the head is unremarkable. CT angiography showed short segment severe stenosis of the left M1 MCA with reconstitution more distally and Short segment moderate stenosis of basilar artery with reconstitution more distally. Symptoms no IV TNK since patient symptoms is improving and the risk outweigh the benefit. Stroke interventionalists recommended medical management for his moderate to severe stenosis. Acute ischemic stroke and patient continues to have symptoms with right facial droop and ataxia over [id number] with loss of dexterity right hand. 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 History of prostate cancer and had radiation therapy and currently is on hormonal therapy Plan: Patient was given a loading dose of aspirin 325 yesterday and was started on aspirin 81 mg daily. He was also started on Brilinta 90 mg twice daily. Prior to this the patient was not on regular regimen of antiplatelet. I went up on the Lipitor from 20 mg daily to 80 mg daily. LDL goal and strokes is less than 70 I ordered MRI of the brain. 2D echo is ordered and is pending Recommend permissive hypertension for 48 hours Continue neurochecks Cardiac monitoring PT, OT and JIG AND FIXTURE BUILDER APPRENTICE are consulted Will for the rest of the medical management the primary other specialist For DVT prophylaxis patient is on subcu heparin Thank you for the consultation. Time with Patient: Greater than 30
--- NOTE | 2024-11-30 04:41 | PN ---
PROGRESS NOTE DATE OF SERVICE: 11/29/2024 HISTORY OF PRESENT ILLNESS: This is a 78-year-old gentleman who was admitted with right-sided weakness and dysphagia. He is being closely monitored. At this time, the patient appears to have a stroke on the left hemisphere. MRI and the 2D echo have been ordered. PAST MEDICAL HISTORY: Reviewed. REVIEW OF SYSTEMS: 14-point review of systems negative. CURRENT MEDICATIONS: Reviewed. PHYSICAL EXAMINATION: VITAL SIGNS: Pulse 73, blood pressure 116/75, respirations 16. CHEST: Few scattered rhonchi. ABDOMEN: Soft, nontender. LEGS: No edema. NERVOUS SYSTEM: Right-sided weakness, incoordination present. LABORATORY DATA: Reviewed. ASSESSMENT: 1. Right-sided weakness as well as incoordination, possibly left hemispheric stroke. 2. 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 3. Possible transient ischemic attack history. 4. Mild leukopenia. 5. Mild anemia. 6. History of prostate cancer. 7. History of tonsillectomy. 8. Hypertension. RECOMMENDATIONS AND DISCUSSION: I recommend to continue current management, continue symptomatic treatment, repeat labs. Otherwise, continue with the antiplatelet as well as Lipitor. DVT prophylaxis. Closely follow with Neurology. 2D echo, complete neurovascular workup. I would also recommend MRI. Prognosis is guarded. Discussed with family . Further recommendations to follow. MMODL / IJN: [id number] / MTDD
[2024-11-30 08:03] LABS: Basophils # (A) 0.03 X 10*3/uL (0.00-0.10); Basophils % (A) 0.6 %; Eosinophils # (A) 0.26 X 10*3/uL (0.04-0.35); Eosinophils % (A) 5.0 %; HCT 39.6 % (39.6-50.0); HGB 13.2 g/dL (13.0-17.0); Immature Grans, Automated 0.20 %; Lymphocytes # (A) 0.88 X 10*3/uL (0.90-5.00); Lymphocytes % (A) 16.8 %; MCH 29.9 pg (27.0-32.0); MCHC 33.3 g/dL (32.0-37.0); MCV 89.6 FL (80.0-97.0); Monocytes # (A) 0.44 X 10*3/uL (0.20-1.00); Monocytes % (A) 8.4 %; NRBC Per 100 WBC 0 X 10*3/uL (0.00-0.01); Neutrophils # (A) 3.61 X 10*3/uL (1.80-7.70); Neutrophils % (A) 69.0 %; Platelet Count 174 X 10*3/uL (140-440); RBC 4.42 X 10*6/uL (4.40-5.60); RDW 12.6 % (11.5-14.5); WBC 5.23 X 10*3/uL (4.50-10.00)
[2024-11-30 08:04] LABS: Anion Gap 10.20 mmol/L (4.00-12.00); BUN/Creat Ratio 10.70 Ratio (12.00-20.00); Blood Urea Nitrogen 10.7 mg/dL (9.0-27.0); Calcium 9.1 mg/dL (8.7-10.3); Carbon Dioxide 24.8 mmol/L (21.6-31.8); Chloride 105 mmol/L (96-109); Glucose 108 mg/dL (70-110); Potassium 3.8 mmol/L (3.5-5.5); Sodium 140 mmol/L (135-145)
[2024-11-30] MEDS: ATORVASTATIN 80 MG TAB PO SCH (08:43)
--- NOTE | 2024-11-30 10:29 | MR ---
INDICATION: Patient age:Male; 78 years old; Reason for study: right sided weakness and garbled speech. cva; PHH. COMPARISON: CT brain 11/28/2024, CTA head and neck 11/28/2024 TECHNIQUE: Multi planar, multi sequence imaging was performed through the brain without intravenous c ontrast. FINDINGS: The lopez-white junctions, ventricular system, basal cisterns appear within normal limits for patient' s age. Age-appropriate mild cerebral atrophy. Small region of restricted diffusion within the left ba fozia ganglia involving the lentiform nucleus. Intracranial arterial flow voids are maintained. Midline structures show no abnormality. Patchy and confluent areas of high T2/FLAIR signal intensity are see n within the periventricular and subcortical white matter. Additional involvement of the central belkis . The susceptibility weighted images do not reveal any evidence for micro-hemorrhage. The bone marrow signal is within normal limits. The globes are unremarkable. Mild mucosal thickening of the ethmoid sinuses. IMPRESSION: 1. Acute/subacute ischemia involving the left basal ganglia. 2. Moderate nonspecific white matter changes, likely related to small vessel ischemic disease. A Red level critical message alert has been initiated for Ingris De Leon MD via the [employer] on 11/30/2024 10:26 AM. This message alert has been sent to Ingris De Leon MD vi a the preferences provided by the clinician for the receipt of Radiology Critical Findings. Message I D [id number]. [facility], , 11/30/2024 10:27 AM
[2024-11-30] MEDS: FOLIC ACID 1 MG TAB PO SCH (12:34)
[2024-11-30] MEDS: THIAMINE 100 MG TAB PO SCH (12:34)
[2024-11-30] MEDS: MULTIVITAMINS, THERA 1 EACH TAB PO SCH (12:34)
--- NOTE | 2024-11-30 15:20 | P.PN ---
Progress Note - Text Progress Note Date: 11/30/24 Patient will require a walker on discharge as patient has mobility limitation that significantly impairs his ability to participate in ADLs in the home. Patient is safe to use a walker and his functional mobility deficit can be resolved by the use of a walker. Patient is hospitalized for TIA versus CVA. Prescription provided to case management/social work for discharge planning. The impression and plan of care has been dictated by Gwen Mccain, Nurse Practitioner as directed. Dr. Moises MD I have performed a history and examination and MDM of this patient, discussed the same with the dictator, and agree with the dictator's assessment and plan as written ,documented as a scribe. Based on total visit time, I have performed more than 50% of the visit.
--- NOTE | 2024-11-30 16:03 | P.PN ---
Subjective Progress Note Date: 11/30/24 I am following-up with the patient who is accompanied with his . He states he feels he has more strength in the right lower extremity and is able to walk around. He continues to have dextrexity loss over the right hand. Per the patient and his , his blood pressure as outpatient can go up to 140-150's but was notified by his PCP that is was normal according to them. Per , patient diet is poor and eats a big bag of chips during breakfast while watching t.v. Objective - Vital Signs Vital signs: Vital Signs Temp 98.0 F 11/30/24 14:00 Pulse 75 11/30/24 14:00 Resp 17 11/30/24 14:00 BP 167/82 11/30/24 14:00 Pulse Ox 97 11/30/24 14:00 FiO2 Intake & Output 11/29/24 11/30/24 11/30/24 18:59 06:59 18:59 Intake Total 1080 240 Balance 1080 240 Intake: Oral 1080 240 Other: Voiding Method Toilet Toilet # Voids 3 3 4 # Bowel Movements 1 1 - Exam GENERAL: Sitting on chair and is not in acute distress. NEUROLOGICAL: Higher mental function: The patient is awake, alert, oriented to self, place and time. Patient is following commands. No aphasia and no neglect. Cranial nerves: The pupils are round, equal and reactive to light and accommodation. Visual jimenez are full to confrontation throughout. Extraocular movement is intact no nystagmus is noted. Facial sensation is normal to touch throughout. The facial strength is mild right lower. Hearing is normal bilaterally to hand rub. Tongue is midline and moved [id number] without any difficulty. No dysarthria is noted. Shoulder shrug is normal bilaterally. Motor: The strength is has loss of dexterity of right hand. Right hand machine stoppage frequency checker is 4+ and right lower extremity is 4+ to 5-. Otherwise 5 over 5 throughout. Normal tone and bulk. Cerebellum: Has ataxia of the right finger to nose. Otherwise normal on the left finger to nose and heel to sandoval bilaterally. Sensation: Sensation is normal to touch throughout. Some of the workup during this hospital visit consisted of: Lipid panel: Triglyceride is 120, cholesterol is 173, LDL is 105 and HDL is 43 CT of the head is reported as no acute intracranial hemorrhage or midline shift. There is diffuse age-related cerebral atrophy and chronic small vessel ischemic change noted. I personally reviewed the CT of the head and I agree there is no acute or subacute stroke. CT angiography of the head and neck is reported as short segment severe stenosis of the left M1 MCA with reconstitution more distally. Consider further evaluation with MRI of the brain if there are continued clinical concern for a cute ischemia. Short segment moderate stenosis of basilar artery with reconstitution more distally. No evidence of dissection of the cervical internal carotid artery or vertebral artery. No any evidence of significant stenosis at the carotid bifurcation. MRI Brain: Acute/subacute ischemia involving the left basal ganglia. - Labs CBC & Chem 7: 11/30/24 04:05 11/30/24 04:05 Labs: Abnormal Lab Results - Last 24 Hours (Table) 11/30/24 11/30/24 Range/Units 04:05 04:05 Lymphocytes # 0.88 L (0.90-5.00) X 10*3/uL BUN/Creatinine Ratio 10.70 L (12.00-20.00) Ratio Assessment and Plan Assessment: Patient is a 78-year-old gentleman who yesterday had sudden onset right-sided weakness and numbness around 12:15pm called the patient. CT of the head is unremarkable. CT angiography showed short segment severe stenosis of the left M1 MCA with reconstitution more distally and Short segment moderate stenosis of basilar artery with reconstitution more distally. Symptoms no IV TNK since patient symptoms is improving and the risk outweigh the benefit. Stroke inter ventionalists recommended medical management for his moderate to severe stenosis. Acute ischemic stroke is chronic microvascular disease (over the left thalamus/posterior limb of internal capsule): Has mild right facial droop, loss of dextrexity of the right hand, right sided weakness and ataxia of the right hand. His risk factors for stroke is age, HTN and morbid obese. 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 History of prostate cancer and had radiation therapy and currently is on hormonal therapy Plan: Patient was given a loading dose of aspirin 325 yesterday and was started on aspirin 81 mg daily. He was also started on Brilinta 90 mg twice daily. Prior to this the patient was not on regular regimen of antiplatelet. I went up on the Lipitor from 20 mg daily to 80 mg daily. LDL goal and strokes is less than 70 2D echo is ordered and is pending Recommend slowly titrating down the bleed pressure. Continue neurochecks Cardiac monitoring PT, OT and OBSTETRICIAN are consulted. Patient is not interested on inpatient rehab and rather would like outpatient rehab if needed. Patient was counseled on better diet control Will for the rest of the medical management the primary other specialist Recommend the patient to follow-up with Dr. Corey as outpatient within 2 weeks for his stroke and M1 severe stenosis a well basilar stenosis. For DVT prophylaxis patient is on subcu heparin Upon discharge, recommend the patient to follow-up with outpatient neurologist within 2 weeks. The plan is discussed with patient, his who is at bedside and his nurse. Time with Patient: Less than 30
--- NOTE | 2024-12-01 00:08 | P.PN ---
Subjective Progress Note Date: 11/30/24 Patient is a 78-year-old male who was recently admitted with right-sided weakness and dysphagia being closely monitored with neurology following. Patient is scheduled to undergo MRI today and 2D echo remains pending. Patient is continued on telemetry monitoring and will continue at this time. Patient is afebrile with no reports of chest pain or shortness of breath. Patient has been tolerating diet with no reported nausea or vomiting. Patient will require a walker on discharge in order to manage ADLs. Case management/social work following working on discharge planning. Review of systems: Constitutional: No reports of fatigue, fever, or chills Cardiovascular: No reports of chest pain or palpitations Respiratory: No reports of shortness of breath or cough GI: No reports of nausea, no reports of vomiting, no diarrhea : No reports of dysuria or retention Neurovascular: reports of generalized weakness All medications have been reviewed PHYSICAL EXAMINATION: GENERAL: The patient is alert and oriented x3, Well developed, well nourished. Obese HEENT: Pupils are round and equally reacting to light. EOMI. no scleral icterus. No conjunctival pallor. Normocephalic, atraumatic. No pharyngeal erythema. No thyromegaly. CARDIOVASCULAR: S1 and S2 muffled PULMONARY: diminished breath sounds bilaterally with no wheezing or rhonchi noted. ABDOMEN: soft. Nontender on exam. obese. non-distended, normoactive bowel sounds. No palpable organomegaly. MUSCULOSKELETAL: No joint swelling or deformity. EXTREMITIES: No cyanosis, clubbing, or pedal edema. NEUROLOGICAL: Gross neurological examination did not reveal any focal deficits. Diffuse weakness SKIN: No rashes. 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 Patient awaiting MRI along with 2D echo and MRI scheduled for today. 2D echo remains pending and will await results Patient would like to go home on discharge and will likely need a walker to perform ADLs Encouraged to increase activity as tolerated Will discuss with neurology regarding discharge planning once echo is available Due to multiple complex medical issues, overall prognosis is guarded The impression and plan of care has been dictated by Gwen Mccain, nurse practitioner as directed. Dr. Moises MD I have performed a history and examination and MDM of this patient, discussed the same with the dictator, and agree with the dictator's assessment and plan as written ,documented as a scribe. Based on total visit time, I have performed more than 50% of the visit. Any additional findings or plans will be noted. Objective - Vital Signs Vital signs: Vital Signs Temp 97.8 F 11/30/24 20:09 Pulse 76 11/30/24 20:09 Resp 17 11/30/24 20:09 BP 131/68 11/30/24 20:09 Pulse Ox 97 11/30/24 20:09 FiO2 Intake & Output 11/30/24 11/30/24 12/01/24 06:59 18:59 06:59 Intake Total 600 Balance 600 Intake: Oral 600 Other: Voiding Method Toilet Toilet Toilet # Voids 3 2 # Bowel Movements 1 - Labs CBC & Chem 7: 11/30/24 04:05 11/30/24 04:05 Labs: Abnormal Lab Results - Last 24 Hours (Table) 11/30/24 11/30/24 Range/Units 04:05 04:05 Lymphocytes # 0.88 L (0.90-5.00) X 10*3/uL BUN/Creatinine Ratio 10.70 L (12.00-20.00) Ratio
[2024-12-01 09:02] VITALS: TEMP 97.9
--- NOTE | 2024-12-01 12:33 | CA ---
Transthoracic Echo Report [place]: [place] Age: 78 Gender: M : 1945 Exam Date: 12/01/2024 07:34 Exam Location: [facility] Ht (in): 73 Wt (lb): 292 Ordering Physician: Gwen Mccain Attending/Referring Phys: [employer] Rosy Beckham RDCS Procedure CPT: Indications: Thrombus Cardiac Hx: Technical Quality: Fair Contrast 1: Total Dose (mL): Contrast 2: Total Dose (mL): MEASUREMENTS (Male / Female) Normal Values 2D ECHO LV Diastolic Diameter PLAX 4.5 cm 4.2 - 5.9 / 3.9 - 5.3 cm LV Systolic Diameter PLAX 3.4 cm IVS Diastolic Thickness 1.4 cm 0.6 - 1.0 / 0.6 - 0.9 cm LVPW Diastolic Thickness 1.4 cm 0.6 - 1.0 / 0.6 - 0.9 cm LV Relative Wall Thickness 0.6 RV Internal Dim ED PLAX 2.7 cm LVOT Diameter 2.4 cm Aortic Root Diameter 4.4 cm LA Systolic Diameter LX 3.9 cm 3.0 - 4.0 / 2.7 - 3.8 cm LV Diastolic Volume MOD BP 77.2 cm??? 67 - 155 / 56 - 104 cm??? LV Systolic Volume MOD BP 33.6 cm??? 22 - 58 / 19 - 49 cm??? LV Ejection Fraction MOD BP 56.4 % >= 55 % LV Cardiac Index MOD BP 948.9 cm???/min???m??? LV Diastolic Volume MOD 4C 104.1 cm??? LV Systolic Volume MOD 4C 40.5 cm??? LV Ejection Fraction MOD 4C 61.1 % LV Cardiac Index MOD 4C 1384.2 cm???/min???m??? LV Diastolic Length 4C 8.9 cm LV Systolic Length 4C 7.4 cm LV Diastolic Volume MOD 2C 53.1 cm??? LV Systolic Volume MOD 2C 25.7 cm??? LV Ejection Fraction MOD 2C 51.7 % LV Cardiac Index MOD 2C 597.7 cm???/min???m??? LV Diastolic Length 2C 7.9 cm LV Systolic Length 2C 6.7 cm LA Volume 51.0 cm??? 18 - 58 / 22 - 52 cm??? LA Volume Index 19.2 cm???/m??? 16 - 28 cm???/m??? M-MODE Aortic Root Diameter MM 4.0 cm LA Systolic Diameter MM 2.9 cm LA Ao Ratio MM 0.7 AV Cusp Separation MM 1.3 cm DOPPLER AV Peak Velocity 257.6 cm/s AV Peak Gradient 26.5 mmHg AV Mean Velocity 181.4 cm/s AV Mean Gradient 14.8 mmHg AV Velocity Time Integral 59.7 cm AI Peak Velocity 434.3 cm/s AI Peak Gradient 75.4 mmHg AI Pressure Half Time 627.2 ms LVOT Peak Velocity 108.8 cm/s LVOT Peak Gradient 4.7 mmHg LVOT Velocity Time Integral 29.4 cm LVOT Stroke Volume 134.6 cm??? LVOT Stroke Volume Index 53.3 ml/m??? LVOT Cardiac Index 2932.9 cm???/min???m??? AV Area Cont Eq vti 2.3 cm??? AV Area Cont Eq pk 1.9 cm??? MV Area PHT 1.8 cm??? Mitral E Point Velocity 56.4 cm/s Mitral A Point Velocity 97.1 cm/s Mitral E to A Ratio 0.6 MV Deceleration Time 417.0 ms FINDINGS Left Ventricle Left ventricular ejection fraction is estimated at 55-60 %. Normal left ventricular systolic function with no obvious regional wall motion abnormalities. Left ventricular cavity size normal. Mildly increased left ventricular wall thickness. Right Ventricle Normal right ventricular size and function. Unable to estimate the right ventricular systolic pressure. Right Atrium Normal right atrial size. Left Atrium Mild left atrial dilatation. Mitral Valve Structurally normal mitral valve. Trace mitral regurgitation. No mitral stenosis. Aortic Valve Aortic valve not well visualized. Mild aortic stenosis with a peak gradient of 27mmHg and a mean gradient of 15mmHg. Mild to moderate aortic regurgitation. Tricuspid Valve Structurally normal tricuspid valve. Trace tricuspid regurgitation. No tricuspid stenosis. Pulmonic Valve Pulmonic valve not well visualized. . No pulmonic stenosis. Pericardium No pericardial or pleural effusion. Aorta Mild aortic dilatation at the level of the sinuses of valsalva (root), 4.0cm. Moderately dilated proximal ascending aorta (tube) 4.4cm CONCLUSIONS Technically difficult study. Normal left ventricular size and systolic function Mild aortic stenosis with mild to moderate aortic regurgitation Previewed by: Dr. Kayla Yap MD (Electronically Signed) Final Date: 01 December 2024 12:32
[2024-12-01 14:11] VITALS: BP 163/80; PULSE 80; RESP 16
--- NOTE | 2024-12-01 18:12 | P.PN ---
Subjective Progress Note Date: 12/01/24 I am following up with the patient and he is accompanied with his and the patient states that he feels he is doing better he is walking today with therapy without any issues. He continues to have loss of dexterity of the right hand. Denies any new neurological issues. Objective - Vital Signs Vital signs: Vital Signs Temp 97.9 F 12/01/24 14:10 Pulse 80 12/01/24 14:10 Resp 16 12/01/24 14:10 BP 163/80 12/01/24 14:10 Pulse Ox 97 12/01/24 14:10 FiO2 Intake & Output 11/30/24 12/01/24 12/01/24 18:59 06:59 18:59 Intake Total 600 Output Total 400 Balance 600 -400 Intake: Oral 600 Output: Urine 400 Other: Voiding Method Toilet Toilet Toilet # Voids 2 2 2 # Bowel Movements 1 - Exam GENERAL: Sitting on chair and is not in acute distress. NEUROLOGICAL: Higher mental function: The patient is awake, alert, oriented to self, place and time. Patient is following commands. No aphasia and no neglect. Cranial nerves: The pupils are round, equal and reactive to light and accommodation. Visual jimenez are full to confrontation throughout. Extraocular movement is intact no nystagmus is noted. Facial sensation is normal to touch throughout. The facial strength is mild right lower. Hearing is normal bilate rally to hand rub. Tongue is midline and moved [id number] without any difficulty. No dysarthria is noted. Shoulder shrug is normal bilaterally. Motor: The strength is has loss of dexterity of right hand. Right hand dental instrument maker is 4+. Otherwise 5 over 5 throughout. Normal tone and bulk. Cerebellum: Has ataxia of the right finger to nose. Otherwise normal on the left finger to nose and heel to sandoval bilaterally. Sensation: Sensation is normal to touch throughout. Some of the workup during this hospital visit consisted of: Lipid panel: Triglyceride is 120, cholesterol is 173, LDL is 105 and HDL is 43 CT of the head is reported as no acute intracranial hemorrhage or midline shift. There is diffuse age-related cerebral atrophy and chronic small vessel ischemic change noted. I personally reviewed the CT of the head and I agree there is no acute or subacute stroke. CT angiography of the head and neck is reported as short segment severe stenosis of the left M1 MCA with reconstitution more distally. Consider further evaluation with MRI of the brain if there are continued clinical concern for acute ischemia. Short segment moderate stenosis of basilar artery with reconstitution more distally. No evidence of dissection of the cervical internal carotid artery or vertebral artery. No any evidence of significant stenosis at the carotid bifurcation. MRI Brain: Acute/subacute ischemia involving the left basal ganglia. 2D echo is reported as technically difficult study. Normal left ventricular size and systolic function. - Labs CBC & Chem 7: 11/30/24 04:05 11/30/24 04:05 Assessment and Plan Assessment: Patient is a 78-year-old gentleman who yesterday had sudden onset right-sided weakness and numbness around 12:15pm called the patient. CT of the head is unremarkable. CT angiography showed short segment severe stenosis of the left M1 MCA with reconstitution more distally and Short segment moderate stenosis of basilar artery with reconstitution more distally. Symptoms no IV TNK since p atient symptoms is improving and the risk outweigh the benefit. Stroke interventionalists recommended medical management for his moderate to severe stenosis. Acute ischemic stroke is chronic microvascular disease (over the left thalamus/posterior limb of internal capsule): Has mild right facial droop, loss of dextrexity of the right hand, right sided weakness and ataxia of the right hand. His risk factors for stroke is age, HTN and morbid obese. Also hormonal therapy can increase risk for stroke. 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 History of prostate cancer and had radiation therapy and currently is on hormonal therapy Plan: Patient was given a loading dose of aspirin 325 yesterday and was started on aspirin 81 mg daily. He was also started on Brilinta 90 mg twice daily. Prior to this the patient was not on regular regimen of antiplatelet. I went up on the Lipitor from 20 mg daily to 80 mg daily. LDL goal and strokes is less than 70 Recommend normotensive blood pressure Recommend 30 days event monitor. Continue neurochecks Cardiac monitoring PT, OT and ONCOLOGY RN are consulted. Patient is not interested on inpatient rehab and rather would like outpatient rehab if needed. Patient was counseled on better diet control Will for the rest of the medical management the primary other specialist Recommend the patient to follow-up with Dr. Corey as outpatient within 2 weeks for his stroke and M1 severe stenosis a well basilar stenosis. Also I notified the patient and his that hormonal therapy can increase risk for stroke. Patient stated that he will be in touch with his oncologist to assess if he can be on a different medication/treatment. For DVT prophylaxis patient is on subcu heparin Upon discharge, recommend the patient to follow-up with outpatient neurologist within 2 weeks. The plan is discussed with patient, his who is at bedside. There is no further neurological work-up. Will sign off. Please reconsult if needed. Time with Patient: Less than 30
== END 2024-12-01 19:35 | disposition home or self-care (01) | DRG 65 ==
LOC: EC 13:10 → 6NMEDSUR 14:49 → OBSVTOIN 14:49 → 6NMEDSUR 18:27
PROVIDERS: ADMIT Hospitalist; ATTEND Hospitalist
DX: I63.9 Cerebral infarction, unspecified (principal); G81.91 Hemiplegia, unspecified affecting right dominant side; D72.819 Decreased white blood cell count, unspecified; I66.02 Occlusion and stenosis of left middle cerebral artery; Z68.38 Body mass index [BMI] 38.0-38.9, adult; I10 Essential (primary) hypertension; D64.9 Anemia, unspecified; I77.1 Stricture of artery; I65.1 Occlusion and stenosis of basilar artery; R13.10 Dysphagia, unspecified; R53.1 Weakness; R27.0 Ataxia, unspecified; R29.810 Facial weakness; E66.9 Obesity, unspecified; Z85.46 Personal history of malignant neoplasm of prostate; Z79.890 Hormone replacement therapy; Z74.09 Other reduced mobility
CPT/HCPCS: 36415; 70450; 70496; 70498; 70551; 71046; 80048; 80053; 80061; 81003; 82550; 84153; 85025; 85610; 85730; 93005; 93306; 96361; 96374; 99291